=== PATIENT | female | born 1975 | race Caucasian/White ===

== ENCOUNTER 2018-09-25 13:14 | Emergency (ER) | payer BC ==
[2018-09-25] MEDS ORDERED: SODIUM CHLORIDE 0.9% 1,000 ML IV STA (13:31)
[2018-09-25] MEDS ORDERED: ADENOSINE 3 MG/ML 2 ML VIAL IVP STA (13:38)
[2018-09-25 14:07] LABS: Anisocytosis Slight; Basophils # (A) 0.1 k/uL (0-0.2); Basophils % (A) 1 %; Eosinophils # (A) 0.2 k/uL (0-0.7); Eosinophils % (A) 2 %; HCT 41.2 % (34.0-46.0); HGB 13.2 gm/dL (11.4-16.0); Lymphocytes # (A) 2.8 k/uL (1.0-4.8); Lymphocytes % (A) 27 %; MCH 28.5 pg (25.0-35.0); MCHC 31.9 g/dL (31.0-37.0); MCV 89.4 fL (80.0-100.0); Mean Platelet Volume 7.1; Monocytes # (A) 0.5 k/uL (0-1.0); Monocytes % (A) 5 %; Neutrophils # (A) 6.5 k/uL (1.3-7.7); Neutrophils % (A) 63 %; Platelet Count 356 k/uL (150-450); RBC 4.61 m/uL (3.80-5.40); RDW 16.2 % (11.5-15.5); WBC 10.3 k/uL (3.8-10.6)
[2018-09-25 14:16] LABS: African American GFR (CKD) >90 (>60 ml/min/1.73 sqM); Anion Gap 10 mmol/L; Blood Urea Nitrogen 17 mg/dL (7-17); Calcium 9.3 mg/dL (8.4-10.2); Carbon Dioxide 27 mmol/L (22-30); Chloride 105 mmol/L (98-107); Glucose 135 mg/dL (74-99); Potassium 3.7 mmol/L (3.5-5.1); Sodium 142 mmol/L (137-145)
--- NOTE | 2018-09-25 14:30 | ED ---
General Adult HPI - General Chief complaint: Arrhythmia/Palpitations Stated complaint: Paliptations Time Seen by Provider: 09/25/18 13:31 Source: patient Mode of arrival: ambulatory Limitations: no limitations - History of Present Illness Initial comments: Dictation was produced using [employer] dictation software. please excuse any gramma tical, word or spelling errors. Chief Complaint: 43-year-old female past medical history of supraventricular tachycardia presents with palpitations. History of Present Illness: He 3-year-old female she has past medical history of supraventricular tachycardia. 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 Patient states that she takes metoprolol daily. Over the last couple days she is been working [employer]. She is not sure if she missed any doses of her Inderal. She takes 25 mg daily. Patient also has been not keeping up with maintaining her hydration. Patient felt palpitations that started today. She tried multiple Valsalva maneuver times with no resolution of her symptoms. Prior to coming to the emergency Department she's been having palpitations for proximal minutes. Patient otherwise has no complaints. The ROS documented in this emergency department record has been reviewed and confirmed by me. Those systems with pertinent positive or negative responses have been documented in the HPI. All other systems are other negative and/or noncontributory. PHYSICAL EXAM: General Impression: Alert and oriented x3, not in acute distress HEENT: Normocephalic atraumatic, extra-ocular movements intact, pupils equal and reactive to light bilaterally, mucous membranes moist. Cardiovascular: Tachycardic Chest: Lungs clear to auscultation bilaterally, no rhonchi, no wheeze, no rales Abdomen: Bowel sounds present, abdomen soft, non-tender, non-distended, no organomegaly Musculoskeletal: Pulses present and equal in all extremities, no peripheral edema Motor: no focal deficits noted Neurological: CN II-XII grossly intact, no focal motor or sensory deficits noted Skin: Intact with no visualized rashes Psych: Normal affect and mood ED course: 43-year-old female presents with supraventricular tachycardia. As upon arrival shows heart rate of 193, rest of vital signs within acceptable limits. Patient otherwise is well-appearing. Patient is given 6 of adenosine and 1 L normal saline bolus with alleviation of her superventricular tachycardia.She is well-appearing after adenosine administration. Labs were obtained just for surveillance. CBC unremarkable. Metabolic panel is negative. Cardiac enzymes negative. Patient given 1 L normal saline bolus. She reports feeling much better. Patient's heart rate is now 100-104. This is around her normal heart rate. Patient told to maintain adequate hydration especially limits this recent heat wave and to be compliant with her beta blockers. Patient otherwise told to follow-up with plastics production machine operator. return parameters are discussed. Patient clear for discharge. EKG interpretation: Ventricular rate 188, superventricular tachycardia, ID interval 120, QS 90, QTc 449. No ID prolongation, no QTC prolongation, no ST or T-wave changes noted. Repeat EKG shows heart rate 110, sinus tachycardia,. 180, QS 96, QTC 449 - Related Data Home Medications Medication Instructions Recorded Confirmed Cetirizine HCl [Zyrtec] 10 mg PO DAILY 09/25/18 09/25/18 Ibuprofen [Motrin Ib] 200 mg PO Q6H PRN 09/25/18 09/25/18 Levothyroxine Sodium [Synthroid] 100 mcg PO DAILY 09/25/18 09/25/18 Metoprolol Succinate [Toprol XL] 25 mg PO DAILY 09/25/18 09/25/18 Allergies Allergy/AdvReac Type Severity Reaction Status Date / Time No Known Allergies Allergy Verified 09/25/18 14:24 Review of Systems ROS Statement: Those systems with pertinent positive or pertinent negative responses have been documented in the HPI. ROS Other: All systems not noted in ROS Statement are negative. Past Medical History Past Medical History: Supraventricular Tachycardia (SVT), Thyroid Disorder History of Any Multi-Drug Resistant Organisms: None Reported Past Surgical History: Cholecystectomy Additional Past Surgical History / Comment(s): ovaries removed Past Psychological History: No Psychological Hx Reported Smoking Status: Never smoker Past Alcohol Use History: None Reported Past Drug Use History: None Reported General Exam Limitations: no limitations Course Vital Signs 09/25/18 09/25/18 09/25/18 13:21 13:42 14:42 Temperature 98.1 F Pulse Rate 193 H 111 H 102 H Respiratory 18 20 18 Rate Blood Pressure 129/91 156/117 175/125 O2 Sat by Pulse 98 99 99 Oximetry Medical Decision Making - Lab Data Result diagrams: 09/25/18 13:36 09/25/18 13:36 Lab Results 09/25/18 09/25/18 09/25/18 Range/Units 13:36 13:36 13:36 WBC 10.3 (3.8-10.6) k/uL RBC 4.61 (3.80-5.40) m/uL Hgb 13.2 (11.4-16.0) gm/dL Hct 41.2 (34.0-46.0) % MCV 89.4 (80.0-100.0) fL MCH 28.5 (25.0-35.0) pg MCHC 31.9 (31.0-37.0) g/dL RDW 16.2 H (11.5-15.5) % Plt Count 356 (150-450) k/uL Neutrophils % 63 % Lymphocytes % 27 % Monocytes % 5 % Eosinophils % 2 % Basophils % 1 % Neutrophils # 6.5 (1.3-7.7) k/uL Lymphocytes # 2.8 (1.0-4.8) k/uL Monocytes # 0.5 (0-1.0) k/uL Eosinophils # 0.2 (0-0.7) k/uL Basophils # 0.1 (0-0.2) k/uL Anisocytosis Slight Sodium 142 (137-145) mmol/L Potassium 3.7 (3.5-5.1) mmol/L Chloride 105 (98-107) mmol/L Carbon Dioxide 27 (22-30) mmol/L Anion Gap 10 mmol/L BUN 17 (7-17) mg/dL Creatinine 0.90 (0.52-1.04) mg/dL Est GFR (CKD-EPI)AfAm >90 (>60 ml/min/1.73 sqM) Est GFR (CKD-EPI)NonAf 80 (>60 ml/min/1.73 sqM) Glucose 135 H (74-99) mg/dL Calcium 9.3 (8.4-10.2) mg/dL Troponin I <0.012 (0.000-0.034) ng/mL Disposition Clinical Impression: SVT (supraventricular tachycardia) Disposition: HOME SELF-CARE Condition: Good Instructions (If sedation given, give patient instructions): Heart Palpitations (ED) Is patient prescribed a controlled substance at d/c from ED?: No Referrals: Jm Souza MD [STAFF PHYSICIAN] - 1-2 days Time of Disposition: 15:03
[2018-09-25 15:15] VITALS: BP 145/68; PULSE 100; RESP 20; TEMP 98.3
== END 2018-09-25 15:15 | disposition home or self-care (01) ==
LOC: EC 13:14
DX: I47.1 Supraventricular tachycardia (principal); E07.9 Disorder of thyroid, unspecified; Z79.890 Hormone replacement therapy; Z79.899 Other long term (current) drug therapy
CPT/HCPCS: 99285; 96374; 96361; 36415; 93005; 80048; 84484; 85025; J0153